=== PATIENT | female | born 1990 | race Hispanic/Latino ===

== ENCOUNTER 2019-12-11 13:40 | Emergency (ER) | payer OTHER ==
[~2019-12-11] VITALS: Ht 165.1 cm; Wt 66.2 kg
[2019-12-11] MEDS ORDERED: IBUP200T45 PO (13:46)
--- NOTE | 2019-12-11 14:46 | REP ---
Clinical: Left foot pain Technique: AP, lateral, bilateral oblique views left foot . Findings: The osseous structures and joint spaces are intact and normal. There is no evidence for acute fracture or dislocation. Surrounding soft tissues are unremarkable. No subcutaneous emphysema or radiodense foreign body. Impression: Normal left foot series. No acute fracture or dislocation. Electronically Signed by Shun Hernández MD 12/11/2019 02:38 P
[2019-12-11 15:43] VITALS: BP 131/86
== END 2019-12-11 15:50 | disposition home or self-care (01) ==
LOC: M ED 13:40
DX: S90.32XA Contusion of left foot, initial encounter (principal); S90.31XA Contusion of right foot, initial encounter; Y92.9 Unspecified place or not applicable; Y93.01 Activity, walking, marching and hiking; Y99.9 Unspecified external cause status; Z88.5 Allergy status to narcotic agent

== ENCOUNTER 2020-04-13 12:18 | Emergency (ER) | payer OTHER ==
[~2020-04-13] VITALS: Ht 165.1 cm; Wt 66.3 kg
[~2020-04-13 12:18] MED LIST: IBUP200T45 PO
[2020-04-13 13:15] LABS: BASO # 0.1 10^3/uL (0.0-0.2); BASO % 0.6 % (0.0-1.0); EOS # 0.1 10^3/uL (0.0-0.5); HEMATOCRIT 38.5 % (36.0-47.0); HEMOGLOBIN 13.2 g/dl (12.0-15.5); LYMPH # 2.8 10^3/uL (1.5-5.0); LYMPH % 26.2 % (24.0-44.0); MEAN CORPUSCULAR HEMOGLOBIN 31.7 pg (27.0-33.0); MEAN CORPUSCULAR HGB CONC 34.3 g/dl (32.0-36.5); MEAN CORPUSCULAR VOLUME 92.3 fl (80.0-96.0); MONO # 0.8 10^3/uL (0.0-0.8); MONO % 7.7 % (0.0-5.0); NEUTROPHILS # 6.9 10^3/uL (1.5-8.5); NEUTROPHILS % 64.2 % (36.0-66.0); PLATELET COUNT, AUTOMATED 319 10^3/uL (150-450); RED BLOOD COUNT 4.17 10^6/uL (4.00-5.40); WHITE BLOOD COUNT 10.8 10^3/uL (4.0-10.0)
[2020-04-13] MEDS ORDERED: KETOROLAC 30 MG/ML 1ML VIAL IV ONE (13:30)
[2020-04-13] MEDS ORDERED: NS 1,000 ML IV ONE (13:30)
[2020-04-13 13:38] LABS: ALBUMIN 4.3 GM/DL (3.2-5.2); ALT/SGPT 20 U/L (12-78); BILIRUBIN,DIRECT 0.1 MG/DL (0.0-0.2); BILIRUBIN,TOTAL 0.4 MG/DL (0.2-1.0); BLOOD UREA NITROGEN 16 MG/DL (7-18); CALCIUM LEVEL 9.3 MG/DL (8.5-10.1); CARBON DIOXIDE LEVEL 30 MEQ/L (21-32); CHLORIDE LEVEL 105 MEQ/L (98-107); CREATININE FOR GFR 0.95 MG/DL (0.55-1.30); GLOMERULAR FILTRATION RATE > 60.0 (>60); GLUCOSE, FASTING 87 MG/DL (70-100); LIPASE 84 U/L (73-393); POTASSIUM SERUM 3.9 MEQ/L (3.5-5.1); SODIUM LEVEL 140 MEQ/L (136-145); TOTAL PROTEIN 7.7 GM/DL (6.4-8.2)
[2020-04-13] MEDS: GASTROGRAFIN SOLUTION 30ML PO SCH ×2 (14:13→14:41)
[2020-04-13 15:27] LABS: CHLAMYDIA DNA AMPLIFICATION NEGATIVE (NEGATIVE); GC DNA AMPLIFICATION NEGATIVE (NEGATIVE)
[2020-04-13] MEDS ORDERED: ISOVUE-370 76% 100ML VIAL As Ordered ONE (15:27)
[2020-04-13] MEDS ORDERED: ZOFR8TAB24 PO (15:54)
--- NOTE | 2020-04-13 15:55 | REP ---
PELVIC ULTRASOUND: Real-time sonographic evaluation of pelvis performed utilizing transabdominal and endovaginal technique. Bladder measures 5.0 x 3.6 x 8.3 cm. Uterus measures 11.6 x 5.7 x 6.0 cm. Endometrial thickness is 3 mm. IUD is seen in the endometrial canal. Right ovary measures 2.5 x 2.4 x 2.9 cm. Left ovary measures 2.6 x 2.0 1.7 cm. There is a dominant follicle in the right ovary 2.2 cm in diameter. There is no other evidence of adnexal mass or free fluid. There is no torsion with duplex Doppler evaluation. IMPRESSION: IUD in the endometrial canal. Dominant follicle right ovary 2.2 cm in diameter. No free fluid or torsion. Electronically Signed by Edgardo Arnold MD 04/18/2020 06:13 P
[2020-04-13] MEDS ORDERED: ONDANSETRON 4MG/2ML VIAL IV ONE (16:00)
[2020-04-13 16:10] VITALS: BP 114/66
--- NOTE | 2020-04-13 16:26 | REP ---
CT ABDOMEN AND PELVIS WITH ORAL AND IV CONTRAST: TECHNIQUE: Axial contrast-enhanced images from the lung bases to the pubic symphysis using 100 mL Isovue-370 intravenous contrast material with multiplanar reformations. Visualized lung bases are clear. The liver, spleen, adrenals, pancreas and kidneys are unremarkable. There is no hydronephrosis. There is no abdominal aortic aneurysm. There is no adenopathy. There is no free air or free fluid. There is no bowel wall thickening. The appendix is normal. No pelvic mass is seen. IUD is seen in the uterus. Urinary bladder is not well distended and not well evaluated. IMPRESSION: No acute abnormality is detected. Electronically Signed by Edgardo Arnold MD 04/18/2020 06:15 P
== END 2020-04-13 16:16 | disposition home or self-care (01) ==
LOC: M ED 12:18
DX: N93.8 Other specified abnormal uterine and vaginal bleeding (principal); N83.201 Unspecified ovarian cyst, right side; K62.5 Hemorrhage of anus and rectum; K21.9 Gastro-esophageal reflux disease without esophagitis; Z97.5 Presence of (intrauterine) contraceptive device; Z88.5 Allergy status to narcotic agent; F17.210 Nicotine dependence, cigarettes, uncomplicated
CPT/HCPCS: 74177; 76830; 76856; 80048; 80076; 81001; 83690; 84702; 85025; 87210; 87661; 93976; 96361; 96374; 96375; 99284; J1885; J2405; Q9963; Q9967

== ENCOUNTER 2020-08-01 09:33 | Day surgery (SDC) | payer OTHER ==
[~2020-08-01] VITALS: Ht 167.6 cm; Wt 64.4 kg
[~2020-08-01 09:33] MED LIST changes: +CARA1TAB6; +D31000TA2 PO; +FLAX1300 PO; +IMIT50TA; +MIRA3350 PO; +MULTCAP PO; +NS 1,000 ML IV ONE; +PAXI10TA12 PO; +ZOFR8TAB24 PO
--- NOTE | 2020-08-01 11:03 | ROOR ---
Patient Name: Lashanda Kovacs Procedure Date: 08/01/2020 10:44 AM Date of : 1990 Age: 29 Room: [facility] Gender: Female Note Status: Finalized Procedure: Upper Endoscopy + Biopsies Indications: Heartburn, Exclusion of Aguilar's esophagus, Exclusion of peptic ulcer Providers: Klaus Lopez MD Referring MD: ELE MARLOW MD Requesting Provider: Medicines: Monitored Anesthesia Care Complications: No immediate complications. Procedure: Pre-Anesthesia Assessment: - The heart rate, respiratory rate, oxygen saturations, blood pressure, adequacy of pulmonary ventilation, and response to care were monitored throughout the procedure. The Endoscope was introduced through the mouth, and advanced to the second part of duodenum. The upper GI endoscopy was accomplished without difficulty. The patient tolerated the procedure well. Findings: The Z-line was irregular and was found 40 cm from the incisors. Multiple biopsies were obtained with cold forceps for evaluation to rule out Aguilar's Esophagus randomly at the gastroesophageal junction. No other significant abnormalities were identified in a careful examination of the stomach. Biopsies were taken with a cold forceps in the gastric antrum for Helicobacter pylori testing. The exam of the duodenum was otherwise normal. Impression: - Z-line irregular, 40 cm from the incisors. - Multiple biopsies were obtained at the gastroesophageal junction. - Biopsies were taken with a cold forceps for Helicobacter pylori testing. - The examination was otherwise normal. Recommendation: - Patient has a contact number available for emergencies. The signs and symptoms of potential delayed complications were discussed with the patient. Return to normal activities tomorrow. Written discharge instructions were provided to the patient. - High fiber diet. - Discharge patient to home. - Follow an antireflux regimen. - Continue present medications. - Await pathology results. - Telephone GI clinic for pathology results in 1 week. - Return to referring physician. - The findings and recommendations were discussed with the patient. Klaus Lopez MD Klaus Lopez MD 08/01/2020 11:02:59 AM Electronically signed by Klaus Lopez MD Number of Addenda: 0 Note Initiated On: 08/01/2020 10:44 AM Estimated Blood Loss: Estimated blood loss: none.
[2020-08-01] MEDS ORDERED: propofoL 200 MG/20 ML VIAL As Ordered ONE (11:10)
[2020-08-01] MEDS ORDERED: LIDOCAINE 2% 100MG/5ML SDV (FOR ANES.) As Ordered ONE (11:10)
--- NOTE | 2020-08-01 11:22 | ROOR ---
Patient Name: Lashanda Kovacs Procedure Date: 08/01/2020 10:44 AM Date of : 1990 Age: 29 Room: [facility] Gender: Female Note Status: Finalized Procedure: Total Colonoscopy to Cecum + ileoscopy Indications: Rectal bleeding, Change in bowel habits, Constipation Providers: Klaus Lopez MD Referring MD: ELE MARLOW MD Requesting Provider: Medicines: Monitored Anesthesia Care Complications: No immediate complications. Procedure: Pre-Anesthesia Assessment: - The heart rate, respiratory rate, oxygen saturations, blood pressure, adequacy of pulmonary ventilation, and response to care were monitored throughout the procedure. The Colonoscope was introduced through the anus and advanced to the terminal ileum, with identification of the appendiceal orifice and IC valve. The colonoscopy was performed without difficulty. The patient tolerated the procedure well. The quality of the bowel preparation was excellent. Findings: The perianal and digital rectal examinations were normal. Non-bleeding internal hemorrhoids were found during retroflexion. The hemorrhoids were small and Grade I (internal hemorrhoids that do not prolapse). No other significant abnormalities were identified in a careful examination of the remainder of the colon. The terminal ileum appeared normal. The exam was otherwise without abnormality. Impression: - Non-bleeding internal hemorrhoids. - The examined portion of the ileum was normal. - The examination was otherwise normal. - No specimens collected. - The exam was otherwise normal to the cecum. Recommendation: - Patient has a contact number available for emergencies. The signs and symptoms of potential delayed complications were discussed with the patient. Return to normal activities tomorrow. Written discharge instructions were provided to the patient. - High fiber diet. - Discharge patient to home. - Continue present medications. - Repeat colonoscopy at age 50 for screening purposes. - Return to referring physician. - The findings and recommendations were discussed with the patient. Klaus Lopez MD Klaus Lopez MD 08/01/2020 11:21:22 AM Electronically signed by Klaus Lopez MD Number of Addenda: 0 Note Initiated On: 08/01/2020 10:44 AM Estimated Blood Loss: Estimated blood loss: none.
[2020-08-01 11:35] VITALS: BP 138/63
== END 2020-08-01 11:57 | disposition home or self-care (01) ==
LOC: M OPP 09:33
PROVIDERS: ATTEND Internal Medicine Gastroenterology
DX: K64.0 First degree hemorrhoids (principal); K62.5 Hemorrhage of anus and rectum; K59.00 Constipation, unspecified; K22.8 Other specified diseases of esophagus; R12 Heartburn; K21.9 Gastro-esophageal reflux disease without esophagitis; Z79.899 Other long term (current) drug therapy; Z88.5 Allergy status to narcotic agent; Z87.891 Personal history of nicotine dependence